=== PATIENT | male | born 1975 | race Hispanic/Latino ===

== ENCOUNTER 2017-07-10 09:40 | Emergency (ER) | payer OTHER ==
[~2017-07-10] VITALS: Ht 165.1 cm; Wt 96.2 kg
[~2017-07-10 09:40] MED LIST: KEFLEX500 MG PO; PREDNISONE 10MG10 M1 PO
--- NOTE | 2017-07-10 10:49 | ED GI/GU/ABDOMINAL COMPLAINT ---
History of Present Illness General Chief Complaint: Male Genitourinary Problems Stated Complaint: PAIN TO GENITALS Source: patient, old records Exam Limitations: no limitations Vital Signs & Intake/Output Vital Signs & Intake/Output Vital Signs Date Time Temp Pulse Resp B/P B/P Pulse O2 O2 Flow FiO2 Mean Ox Delivery Rate 07/10 1139 98.8 72 19 124/80 100 Room Air 07/10 0944 98.6 76 18 129/85 98 Room Air Allergies Coded Allergies: MDX - No Known Drug Allergies - Nkd (NO KNOWN DRUG ALLERGIES - NKDA) (12/17/13) Reconcile Medications Cephalexin (Keflex) 500 MG CAPSULE 1 TAB PO TID CELLULTIIS Prednisone 10 MG TABLET 1 TAB PO DAILY ALLERGIC REACTION 4 TABS PO X 3 DAYS 3 TABS PO X 3 DAYS 2 TABS PO X 3 DAYS 1 TAB PO X 3 DAYS Triage Note: 42 YO MALE TO TRIAGE C/O PAIN AND SWELLING AND ?MASS TO R TESTICLE, STATES PAIN STARTED 1 WEEK AGO AND THIS AM AFTER HAVING INTERCOURSE HE NOTICIED THE MASS. DENIES PENILE DISCHARGE. Triage Nurses Notes Reviewed? yes Onset: Last week Duration: day(s):, changing over time, intermittent Timing: recent history Quality/Severity: aching, fullness, moderate, severe Location: scrotal Radiation: no radiation Activities at Onset: sexual activity Prior Abdominal Problems: none Sexually Active: Yes Last Time You Were Sexual: less than 2 months ago Sexual Orientation: Heterosexual Use of Protection: No Modifying Factors: Worsens With: movement, palpation. HPI: Family prior to admission after having intercourse patient noticed right testicle to be larger than left resolving after 2 days. He also noted a lump on this testicle. 1 day prior to admission swelling increased. He noticed that his gun [place] rest over his inguinal area. He denies fever chills nausea vomiting diarrhea abdominal pain chest pain shortness breath headache dysuria rash bleeding penile discharge. Past History Travel History Traveled to [place] past 21 day No Medical History Any Pertinent Medical History? none Neurological: NONE EENT: NONE Cardiovascular: NONE Respiratory: NONE Gastrointestinal: NONE Hepatic: NONE Renal: NONE Musculoskeletal: NONE Psychiatric: NONE Endocrine: NONE Blood Disorders: NONE Cancer(s): NONE MANUFACTURING TECH/Reproductive: NONE Surgical History Surgical History: non-contributory Psychosocial History What is your primary language Setsw[place] Tobacco Use: Never used Family History Hx Contributory? No Review of Systems Review of Systems Constitutional: Reports: no symptoms. EENTM: Reports: no symptoms. Respiratory: Reports: no symptoms. Cardiovascular: Reports: no symptoms. GI: Reports: no symptoms. Genitourinary: Reports: see HPI, pain. Musculoskeletal: Reports: no symptoms. Skin: Reports: no symptoms. Neurological/Psychological: Reports: no symptoms. Hematologic/Endocrine: Reports: no symptoms. Immunologic/Allergic: Reports: no symptoms. All Other Systems: Reviewed and Negative Physical Exam Physical Exam General Appearance: well developed/nourished, alert, awake, anxious, mild distress Head: atraumatic, normal appearance Eyes: Bilateral: normal appearance, PERRL, EOMI, normal inspection. Ears, Nose, Throat, Mouth: hearing grossly normal, moist mucous membrane Neck: normal inspection, supple, full range of motion, normal alignment Respiratory: normal breath sounds, chest non-tender, no respiratory distress, quiet respiration, lungs clear Cardiovascular: regular rate/rhythm, normal peripheral pulses, norml femoral pulses equa Peripheral Pulses: 4+ carotid (R), 4+ carotid (L) Gastrointestinal: normal bowel sounds, soft, non-tender, no organomegaly Male Genitals: testicular tenderness (R) (Enlarged c/w [previous)) Back: normal inspection, normal range of motion Extremities: normal range of motion, no ligament instability Neurologic/Psych: no motor/sensory deficits, awake, alert, oriented x 3, normal gait, normal mood/affect, 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 No Sepsis Present: No Sepsis Focused Exam Completed? No Progress Differential Diagnosis: hernia, testicular torsion, UTI/pyelo Plan of Care: Orders Procedure Date/time Status CHLAMYDIA-GC DNA PROBE 07/10 1043 Active URINALYSIS 07/10 1043 Complete Laboratory Tests 07/10/17 1132: Urine Color YEL, Urine Clarity CLEAR, Urine pH 6.0, Ur Specific [place] >= 1.030 , Urine Protein NEG, Urine Ketones NEG, Urine Nitrite NEG, Urine Bilirubin NEG, Urine Urobilinogen 0.2, Ur Leukocyte Esterase NEG, Ur Microscopic EXAM NOT REQUIRED, Urine Hemoglobin NEG, Urine Glucose NEG Microbiology 07/10 1132 URINE ROUT: GC DNA Probe - RECD 07/10 1132 URINE ROUT: Chlamydia DNA Probe ([place]) - RECD Diagnostic Imaging: Viewed by Me: Ultrasound. Discussed w/RAD: Ultrasound. Radiology Impression: Normal exam. No evidence of testicular torsion. Initial ED EKG: none Departure Departure Time of Disposition: 1208 Disposition: HOME OR SELF CARE Condition: Stable Clinical Impression Primary Impression: Testicular pain, unspecified Referrals: Jaydon Hamilton MD Call for urology follow up Additional Instructions: Wear good scrotal support Departure Forms: Customer Survey General Discharge Information
--- NOTE | 2017-07-10 11:27 | ULTRASOUND REPORT ---
EXAMINATION: US SCROTUM CLINICAL INFORMATION: Right testicular pain, swelling for 1 week, then one day prior to admission. Evaluate for torsion. COMPARISON: None TECHNIQUE: A sonogram of the scrotum was performed assessing arriaga-scale appearance and color Doppler flow. Spectral analysis and Doppler interrogation was performed. FINDINGS: RIGHT: Right testicle measures 5.1 x 2.8 x 3.4 cm cm, volume 34.5 mL. Parenchymal echotexture is normal. No focal testicular parenchymal lesions are visualized. Normal symmetric intratesticular flow is visualized. Right epididymal head is normal in size. No right hydrocele or varicocele is seen. LEFT: Left testicle measures 4.4 x 2.5 x 3.0 cm, volume 23.4 mL. Parenchymal echotexture is normal. No focal testicular parenchymal lesions are visualized. Normal symmetric intratesticular flow is visualized. Left epididymal head is normal in size. No left hydrocele or varicocele is seen. IMPRESSION: Normal exam. No evidence of testicular torsion.
[2017-07-10 11:39] VITALS: BP 124/80
== END 2017-07-10 12:17 ==
LOC: ERH 09:40
DX: N50.812 Left testicular pain (principal)
CPT/HCPCS: 81003; 87491; 87591